=== PATIENT | male | born 1990 | race African-American/Black ===

== ENCOUNTER 2019-04-19 07:31 | Emergency (ER) | payer OTHER ==
[~2019-04-19] VITALS: Ht 188 cm; Wt 127.7 kg
[2019-04-19] MEDS ORDERED: BENA25CA4 PO ×2 (07:36→11:00)
[2019-04-19] MEDS ORDERED: NS 1,000 ML IV ONE (08:00)
[2019-04-19] MEDS ORDERED: FAMOTIDINE INJ 20MG/2ML VIAL (S0028) IVP ONE (08:00)
[2019-04-19] MEDS ORDERED: methylPREDNISolone INJ 125 MG/2 ML VIAL (J2930) IV ONE (08:00)
[2019-04-19] MEDS ORDERED: diphenhydrAMINE INJ 50MG/ML VIAL (J1200) IV ONE (08:00)
[2019-04-19 08:11] LABS: BASO % 0.3 % (0.0-1.0); EOS # 0.1 10^3/uL (0.0-0.5); EOS % 1.9 % (0.0-3.0); HEMATOCRIT 50.1 % (42.0-52.0); HEMOGLOBIN 16.9 g/dl (13.5-17.5); LYMPH # 1.9 10^3/uL (1.5-5.0); LYMPH % 50.8 % (24.0-44.0); MEAN CORPUSCULAR HEMOGLOBIN 27.4 pg (27.0-33.0); MEAN CORPUSCULAR HGB CONC 33.7 g/dl (32.0-36.5); MEAN CORPUSCULAR VOLUME 81.3 fl (80.0-96.0); MONO # 0.2 10^3/uL (0.0-0.8); MONO % 4.8 % (0.0-5.0); NEUTROPHILS # 1.6 10^3/uL (1.5-8.5); NEUTROPHILS % 41.7 % (36.0-66.0); PLATELET COUNT, AUTOMATED 219 10^3/uL (150-450); RED BLOOD COUNT 6.16 10^6/uL (4.30-6.10); WHITE BLOOD COUNT 3.7 10^3/uL (4.0-10.0)
[2019-04-19 08:36] LABS: ALBUMIN 4.1 GM/DL (3.2-5.2); ALT/SGPT 104 U/L (12-78); BILIRUBIN,DIRECT 0.2 MG/DL (0.0-0.2); BILIRUBIN,TOTAL 0.6 MG/DL (0.2-1.0); BLOOD UREA NITROGEN 16 MG/DL (7-18); C REACTIVE PROTEIN QUANTITATIV 0.37 MG/DL (0.00-0.30); CARBON DIOXIDE LEVEL 27 MEQ/L (21-32); CHLORIDE LEVEL 109 MEQ/L (98-107); COMPLEMENT C4 28 MG/DL (10-40); CREATININE FOR GFR 1.22 MG/DL (0.70-1.30); GLOMERULAR FILTRATION RATE > 60.0 (>60); GLUCOSE, FASTING 105 MG/DL (70-100); POTASSIUM SERUM 4.2 MEQ/L (3.5-5.1); SODIUM LEVEL 142 MEQ/L (136-145); TOTAL PROTEIN 7.6 GM/DL (6.4-8.2)
[2019-04-19 08:50] LABS: ERYTHROCYTE SEDIMENTATION RATE 1 mm/hr (0-15)
[2019-04-19] MEDS ORDERED: PRED10TA2 PO (11:00)
[2019-04-19] MEDS ORDERED: PEPC1TAB5 PO (11:00)
[2019-04-19 11:16] VITALS: BP 141/80
[2019-04-24 00:07] LABS: C1 ESTER INHIB. NON FUNCTIONAL 27 mg/dL (21-39); C1 ESTERASE INHIB. FUNCTIONAL > 92 (.); COAGULATION FACTOR XII ACTIVIT 82 % (50-150); TRYPTASE 16.5 ug/L (2.2-13.2)
== END 2019-04-19 11:20 | disposition home or self-care (01) ==
LOC: M ED 07:31
DX: L50.9 Urticaria, unspecified (principal); T78.1XXA Other adverse food reactions, not elsewhere classified, initial encounter; X58.XXXA Exposure to other specified factors, initial encounter; Y92.89 Other specified places as the place of occurrence of the external cause
CPT/HCPCS: 80048; 80076; 83519; 85025; 85280; 85652; 86140; 86160; 86161; 86850; 86900; 86901; 94760; 96361; 96374; 96375; 99284; J1200; J2930